=== PATIENT | female | born 1965 | race Caucasian/White ===

== ENCOUNTER → 2024-07-25 | Outpatient (CLI) | payer OTHER ==
[~2024-07-25] MED LIST: Ativan1 MG SL; DOXE25 PO; MELA3 PO; MIRT15ST PO; Nicoderm Cq1 EACH TOP; PRAZ2 PO; QUET200 PO; QUET25 PO; SEROQUEL100 MG PO; SERT100 PO; VITAMIN D325 MC3 PO; Vitamin B Comple1 EA PO
[2024-07-28 11:07] LABS: HCV QNT BY NAAT (IU/ML) Not Detected; HCV QNT BY NAAT (LOG IU/ML) Not Detected; HCV QNT BY NAAT INTERP Not Detected (Not Detected)
== END ==
LOC: LAB SHORT 11:45 → LAB 11:45
PROVIDERS: Physician Assistant
DX: R73.9 Hyperglycemia, unspecified (principal); R76.8 Other specified abnormal immunological findings in serum
CPT/HCPCS: 83036; 87522

== ENCOUNTER → 2024-07-26 | Outpatient (CLI) | payer OTHER ==
[2024-07-27 14:44] LABS: Stool Occult Bld Immuno 1 Negative (NEGATIVE)
== END ==
LOC: LAB 11:10 → LAB SHORT 11:10
PROVIDERS: Physician Assistant
DX: Z12.11 Encounter for screening for malignant neoplasm of colon (principal); Z12.12 Encounter for screening for malignant neoplasm of rectum
CPT/HCPCS: G0328

== ENCOUNTER → 2024-09-12 | Outpatient (CLI) | payer OTHER ==
[2024-09-12 13:57] LABS: BASOPHILS ABSOLUTE AUTO 0.07 K/mm3 (0.00-0.23); BASOPHILS PERCENT AUTO 1 % (0-2); EOSINOPHILS ABSOLUTE AUTO 0.45 K/mm3 (0.00-0.68); EOSINOPHILS PERCENT AUTO 5 % (0-6); Hematocrit 40.4 % (33.0-51.0); Hemoglobin 13.4 g/dL (11.5-16.0); IMMATURE GRAN ABSOLUTE AUTO 0.11 K/mm3 (0.00-0.10); IMMATURE GRAN PERCENT AUTO 1 % (0-1); LYMPHOCYTES ABSOLUTE AUTO 3.03 K/mm3 (0.84-5.20); LYMPHOCYTES PERCENT AUTO 31 % (21-46); MONOCYTES ABSOLUTE AUTO 0.79 K/mm3 (0.16-1.47); MONOCYTES PERCENT AUTO 8 % (4-13); Mean Corpuscular HGB 30.5 pg (26.0-34.0); Mean Corpuscular HGB Conc 33.2 g/dL (31.5-36.5); Mean Corpuscular Volume 92 fL (80-100); NEUTROPHILS ABSOLUTE AUTO 5.36 K/mm3 (1.96-9.15); NEUTROPHILS PERCENT AUTO 55 % (41-73); Platelet Count 255 K/mm3 (150-400); RDW Coefficient Variation 13.3 % (11.7-14.2); RDW Standard Deviation 45.2 fL (35.1-46.3); White Blood Cell Count 9.81 K/mm3 (4.00-11.30)
== END ==
LOC: LAB SHORT 11:43 → LAB 11:43
PROVIDERS: Physician Assistant
DX: J44.9 Chronic obstructive pulmonary disease, unspecified (principal)
CPT/HCPCS: 85025

== ENCOUNTER → 2024-10-22 | Outpatient (CLI) | payer OTHER ==
[2024-10-23 10:41] LABS: Source, Urine Clean Catch
[2024-10-23 11:21] LABS: Appearance, Urine Clear (Clear); Bilirubin, Urine Neg (Neg); Blood, Urine Neg (Neg); Color, Urine Yellow (P-Yellow); Glucose Qualitative, Urine Neg (Neg); Ketones, Urine Neg (Neg); Leukocyte Esterase, Urine Neg (Neg); Nitrite, Urine Neg (Neg); Protein, Urine Neg (Neg); Urobilinogen, Urine NORM (Normal)
== END | disposition home or self-care (01) ==
LOC: LAB 19:30 → LAB SHORT 19:30
PROVIDERS: Physician Assistant
DX: N39.0 Urinary tract infection, site not specified (principal)
CPT/HCPCS: 81003

== ENCOUNTER 2024-11-09 14:34 | Emergency (ER) | payer OTHER ==
[~2024-11-09] VITALS: Ht 165.1 cm; Wt 90.7 kg
== END 2024-11-09 18:27 | disposition home or self-care (01) ==
LOC: ER 14:34
DX: F32.A Depression, unspecified (principal); J44.9 Chronic obstructive pulmonary disease, unspecified; Z87.891 Personal history of nicotine dependence; Z79.899 Other long term (current) drug therapy
CPT/HCPCS: 99284

== ENCOUNTER 2024-11-11 17:56 | Emergency (ER) | payer OTHER ==
[~2024-11-11] VITALS: Ht 154.9 cm; Wt 72.6 kg
[2024-11-11 20:18] LABS: Influenza A, PCR NEGATIVE (NEGATIVE); Influenza B, PCR NEGATIVE (NEGATIVE); Resp Syncytial Virus, PCR NEGATIVE (NEGATIVE); SARS-Cov-2 (COVID-19) PCR, MMC NEGATIVE (NEGATIVE)
== END 2024-11-11 21:20 | disposition home or self-care (01) ==
LOC: ER 17:56
PROVIDERS: Student in an Organized Health Care Education/Training Program
DX: R50.9 Fever, unspecified (principal); R05.9 Cough, unspecified; F03.90 Unspecified dementia, unspecified severity, without behavioral disturbance, psychotic disturbance, mood disturbance, and anxiety; I10 Essential (primary) hypertension; J44.9 Chronic obstructive pulmonary disease, unspecified; Z79.899 Other long term (current) drug therapy; Z11.52 Encounter for screening for COVID-19
CPT/HCPCS: 0241U; 99283

== ENCOUNTER 2025-10-15 09:42 | Emergency (ER) | payer OTHER ==
[~2025-10-15] VITALS: Ht 165.1 cm; Wt 158.8 kg
[2025-10-15] MEDS ORDERED: Magic Bullet10 MG PR (11:53)
[2025-10-15] MEDS ORDERED: LAVAP4L PO (11:53)
== END 2025-10-15 12:23 | disposition home or self-care (01) ==
LOC: ER 09:42
DX: K59.00 Constipation, unspecified (principal); I10 Essential (primary) hypertension; J44.9 Chronic obstructive pulmonary disease, unspecified; F03.90 Unspecified dementia, unspecified severity, without behavioral disturbance, psychotic disturbance, mood disturbance, and anxiety; Z79.899 Other long term (current) drug therapy
CPT/HCPCS: 74019; 99283-25